=== PATIENT | female | born 1945 | race American Indian/Alaskan Native ===

== ENCOUNTER → 2023-08-22 15:06 | Outpatient (REF) | payer MEDICARE, BC, SELFPAY | LOC: HWRAD 15:06 | PROVIDERS: ATTENDING PHYSICIAN Internal Medicine | DX: M54.2 Cervicalgia (principal) | CPT/HCPCS: 72050 ==

== ENCOUNTER → 2023-09-01 13:28 | Outpatient (REF) | payer MEDICARE, BC, SELFPAY | LOC: HWRAD 13:28 | PROVIDERS: ATTENDING PHYSICIAN Internal Medicine | DX: R60.0 Localized edema (principal) | CPT/HCPCS: 93971 ==

== ENCOUNTER → 2024-03-26 13:05 | Outpatient (REF) | payer MEDICARE, BC, SELFPAY | LOC: HWRAD 13:05 | PROVIDERS: ATTENDING PHYSICIAN Internal Medicine | DX: M85.859 Other specified disorders of bone density and structure, unspecified thigh (principal); M85.88 Other specified disorders of bone density and structure, other site | CPT/HCPCS: 77080 ==